=== PATIENT | male | born 1945 | race African-American/Black ===

== ENCOUNTER 2017-01-16 09:12 | Outpatient (CLI) | payer OTHER ==
[2017-01-16] MEDS ORDERED: XYLOCAINE 1 % (PLAIN) ONE (09:38)
[2017-01-16 09:57] LABS: BASOPHILS % (AUTO) 0.9 % (0.2-1.0); EOSINOPHILS # (AUTO) 0.1 x10^3/uL (0.0-0.2); EOSINOPHILS % (AUTO) 3.4 % (0.9-2.9); HEMATOCRIT 38.1 % (42.0-54.0); HEMOGLOBIN 12.7 g/dL (13.5-18.0); LYMPHOCYTES # (AUTO) 1.9 X10^3/uL (1.3-2.9); MEAN CORPUSCULAR HEMOGLOBIN 31.8 pg (27.0-34.0); MEAN CORPUSCULAR HGB CONC 33.3 g/dL (33.0-35.0); MEAN CORPUSCULAR VOLUME 95.6 fL (80.0-100.0); MEAN PLATELET VOLUME 9.2 fL (7.4-11.0); MONOCYTES # (AUTO) 0.3 x10^3/uL (0.3-0.8); NEUTROPHILS # (AUTO) 1.1 x10^3/uL (2.2-4.8); NEUTROPHILS % (AUTO) 31.7 % (42.0-75.0); PLATELET COUNT 87 X10^3/uL (150.0-450.0); RED BLOOD COUNT 3.98 X10^6/uL (4.7-6.0); RED CELL DISTRIBUTION WIDTH 15.7 % (11.6-16.5); WHITE BLOOD COUNT 3.4 X10^3/uL (3.6-10.0)
[2017-01-16 10:08] LABS: ALANINE AMINOTRANSFERASE 86 Units/L (12-78); ALBUMIN 3.7 g/dL (3.4-5.0); ALKALINE PHOSPHATASE 69 Units/L (46-116); ASPARTATE AMINO TRANSFERASE 134 Units/L (15-37); BLOOD UREA NITROGEN 21 mg/dL (7-18); CALCIUM 9.1 mg/dL (8.5-10.1); CARBON DIOXIDE 27.5 mmol/L (21-32); CHLORIDE 104 mmol/L (98-107); SODIUM 140 mmol/L (136-145); TOTAL PROTEIN 8.2 g/dL (6.4-8.2); eGFR BLACK RACES 60 (>60); eGFR NON BLACK RACES 49 (>60)
[2017-01-16] MEDS ORDERED: NS 500 ML IV 500 ML IV ONE (11:25)
[2017-01-16 12:58] VITALS: BMI 23.1
[2017-01-16 14:03] VITALS: BP 153/92
--- NOTE | 2017-01-16 15:02 | US ---
History: Hepatitis-C Study: Ultrasound of the liver Findings: The common hepatic duct measures 2.9 mm diameter. The gallbladder is not imaged. The right lobe of the liver measures at least 19.7 cm sagittal length. There is no focal liver mass. There is d iffuse increased echogenicity of liver parenchyma. The visualized pancreas is unremarkable. The right kidney measures 8.46 x 4.74 by is 7.09 cm without mass or hydronephrosis. There is no free fluid. Th ere is a appropriate flow in the portal vein. The gallbladder is apparently absent. Impression: Mild enlargement of the liver without focal mass. Diffuse increased echogenicity compatib le with a viral hepatitis. Reported By:
--- NOTE | 2017-01-16 15:33 | CT ---
HISTORY: Hepatitis-C Study: CT-guided liver biopsy Comparison: None Procedure: The risk, benefits, and alternatives were discussed. Informed consent was obtained. Time o ut was performed. CT guidance was utilized to localize the optimal percutaneous biopsy site along the inferior right lobe of the liver. The patient was prepped, draped, and anesthetized in the usual peterson rile fashion. A 20 gauge Bard coaxial system was advanced to the region of interest, and multiple cor e samples were obtained. The patient tolerated the procedure well without immediate postprocedure com plication and will be monitored for approximately 1 hour prior to discharge if hemodynamic status and pain tolerance are stable. IMPRESSION: Technically successful CT-guided random liver biopsy. Reported By:
== END 2017-01-16 14:15 | disposition home or self-care (01) ==
LOC: RAD 09:12
PROVIDERS: ATTEND Internal Medicine Gastroenterology
PROC: 0FB13ZX Excision of Right Lobe Liver, Percutaneous Approach, Diagnostic (ICD-10-PCS; principal; 2017-01-16)
DX: B18.2 Chronic viral hepatitis C (principal); R16.0 Hepatomegaly, not elsewhere classified
CPT/HCPCS: 36415; 76705; 77012; 80053; 85025; 85610; 85730; 88307; A4222; J2001

== ENCOUNTER 2020-09-07 14:14 | Observation (INO) ==
--- NOTE | 2020-09-07 14:29 | DR.GENAD ---
HPI Time Seen Time Seen by Provider: 09/07/20 14:21 HPI Comment HPI Comment: Patient presents to the ER from outpatient surgery. Patient was to have eye surgery but was noted by nursing to have HR in the 30s. patient denies any palpatations, dizziness, chest pain, shortness of breath. Patient notes that he feels his usual. COVID-19 Coronavirus risk:travel/contact w/high risk person: No Has patient experienced Coronavirus symptoms: No PMH PMH Past Surgical History: Yes Travel Risk Coronavirus risk:travel/contact w/high risk person: No Has patient experienced Coronavirus symptoms: No ROS Review of Systems Constitutional: See HPI Cardiovascular: See HPI All Other Systems: Reviewed and Negative PE Vital Signs Vitals: Temperature 97.3 F Pulse Rate 67 Respiratory Rate 20 Blood Pressure [Left Arm] 153/92 Blood Pressure 119/79 O2 Sat by Pulse Oximetry 97 General Limitations: No Limitations General Appearance: Alert and In No Apparent Distress Head Head Exam: Normal Inspection, Atraumatic and Normocephalic Eyes Eye exam: Normal Appearance and EOMI ENT ENT Exam: Normal Exam Neck Neck Exam: Normal Inspection and Trachea Midline Chest Chest Inspection: Normal Inspection and Symmetric Chest Wall Rise Respiratory Respiratory Exam: Normal Lung Sounds Bilat Respiratory Exam: Bilateral: Clear to Auscultation Cardiovascular Cardiovascular Exam: Normal Rhythm, Bradycardia and Other (HR 50s); negative Regular Rate, Tachycardia, Irregular Rhythm, Normal Heart Sounds, Systolic Murmur, Diastolic Murmur, Rubs, Gallop, Clicks, JVD, +S1, +S2, +S3 and +S4 Abdominal Exam Abdominal Exam: Normal Inspection, Normal Bowel Sounds and Soft Extremities Extremities Exam: Normal Inspection Back Back Exam: Normal Inspection Neurologic Neurological Exam: Alert and Oriented X3 Psychiatric Psychiatric Exam: Normal Affect and Normal Mood Skin Skin Exam: Warm, Dry and Intact COURSE Reevaluation 1st: Unchanged Consultation Called: 17:17 Consultation Comments: Spoke with Dr. Rios who accepts patient for admission. Will consult Cardiology for bradycardia ROR Labs Reviewed Laboratory Results Reviewed?: Yes Result Diagrams: 09/07/20 14:45 09/07/20 14:45 Laboratory: WBC 4.2 X10^3/uL (3.6-10.0) 09/07/20 14:45 RBC 4.20 X10^6/uL (4.7-6.0) L 09/07/20 14:45 Hgb 12.5 g/dL (13.5-18.0) L 09/07/20 14:45 Hct 38.2 % (42.0-54.0) L 09/07/20 14:45 MCV 91.0 fL (80.0-100.0) 09/07/20 14:45 MCH 29.9 pg (27.0-34.0) 09/07/20 14:45 MCHC 32.9 g/dL (33.0-35.0) L 09/07/20 14:45 RDW 15.2 % (11.6-16.5) 09/07/20 14:45 Plt Count 122 X10^3/uL (150.0-450.0) L 09/07/20 14:45 MPV 9.7 fL (7.4-11.0) 09/07/20 14:45 Neut % (Auto) 40.1 % (42.0-75.0) L 09/07/20 14:45 Lymph % (Auto) 42.1 % (21.0-51.0) 09/07/20 14:45 [place] % (Auto) 10.7 % (0.0-13.0) 09/07/20 14:45 Eos % (Auto) 5.7 % (0.9-2.9) H 09/07/20 14:45 Baso % (Auto) 1.4 % (0.2-1.0) H 09/07/20 14:45 Neut # (Auto) 1.7 x10^3/uL (2.2-4.8) L 09/07/20 14:45 Lymph # (Auto) 1.8 X10^3/uL (1.3-2.9) 09/07/20 14:45 [place] # (Auto) 0.4 x10^3/uL (0.3-0.8) 09/07/20 14:45 Eos # (Auto) 0.2 x10^3/uL (0.0-0.2) 09/07/20 14:45 Baso # (Auto) 0.1 X10^3/uL (0.0-0.1) 09/07/20 14:45 Absolute Nucleated RBC 0.3 /100WBC 09/07/20 14:45 PT 15.0 SECONDS (11.8-14.3) 09/07/20 14:40 INR Target Range - 09/07/20 14:40 INR 1.24 (0.8-1.3) 09/07/20 14:40 APTT 39.5 SECONDS (22.9-36.5) H 09/07/20 14:40 PTT Comment - 09/07/20 14:40 Sodium 141 mmol/L (136-145) 09/07/20 14:45 Corrected Sodium TNP 09/07/20 14:45 Potassium 4.7 mmol/L (3.5-5.1) 09/07/20 14:45 Chloride 105 mmol/L (98-107) 09/07/20 14:45 Carbon Dioxide 24.0 mmol/L (21-32) 09/07/20 14:45 BUN 17 mg/dL (7-18) 09/07/20 14:45 Creatinine 1.13 mg/dL (0.70-1.30) 09/07/20 14:45 Est GFR (MDRD) Af Amer > 60 (>60) 09/07/20 14:45 Est GFR (MDRD) Non-Af > 60 (>60) 09/07/20 14:45 Glucose 89 mg/dL (65-99) 09/07/20 14:45 Calcium 9.1 mg/dL (8.5-10.1) 09/07/20 14:45 Corrected Calcium TNP 09/07/20 14:45 Magnesium 2.0 mg/dL (1.7-2.9) 09/07/20 14:45 Total Bilirubin 0.60 mg/dL (0.2-1.0) 09/07/20 14:45 AST 23 Units/L (15-37) 09/07/20 14:45 ALT 13 Units/L (12-78) 09/07/20 14:45 Alkaline Phosphatase 63 Units/L (46-116) 09/07/20 14:45 Creatine Kinase 133 Units/L (39-308) 09/07/20 14:45 CK-MB (CK-2) 2.1 ng/mL (0-4.0) 09/07/20 14:45 CK/CKMB % Calc 1.6 % (<4) 09/07/20 14:45 Troponin I < 0.02 ng/mL (0-1.5) 09/07/20 14:45 Total Protein 8.4 g/dL (6.4-8.2) H 09/07/20 14:45 Albumin 4.1 g/dL (3.4-5.0) 09/07/20 14:45 Globulin 4.3 g/dL (2.5-4.5) 09/07/20 14:45 Albumin/Globulin Ratio 1.0 Ratio (1.1-2.1) L 09/07/20 14:45 TSH 3rd Generation 3.402 uIU/mL (0.358-3.74) 09/07/20 14:45 Opioid Opioid Risk Tool Age (Javier box if 16-45): No History of Preadolescent Sexual Abuse: No Total: 0 Total Score Risk Category: Low Risk Copyright: Emil HUANG predicting aberrant behaviors Diagnosis Discharge Problem: Bradycardia
[2020-09-07 14:34] VITALS: BMI 22.1
[2020-09-07] MEDS ORDERED: NS 1000 ML 1,000 ML ONE (14:57)
[2020-09-07 14:59] LABS: BASOPHILS # (AUTO) 0.1 X10^3/uL (0.0-0.1); BASOPHILS % (AUTO) 1.4 % (0.2-1.0); EOSINOPHILS # (AUTO) 0.2 x10^3/uL (0.0-0.2); EOSINOPHILS % (AUTO) 5.7 % (0.9-2.9); HEMATOCRIT 38.2 % (42.0-54.0); HEMOGLOBIN 12.5 g/dL (13.5-18.0); LYMPHOCYTES # (AUTO) 1.8 X10^3/uL (1.3-2.9); LYMPHOCYTES % (AUTO) 42.1 % (21.0-51.0); MEAN CORPUSCULAR HEMOGLOBIN 29.9 pg (27.0-34.0); MEAN CORPUSCULAR HGB CONC 32.9 g/dL (33.0-35.0); MEAN PLATELET VOLUME 9.7 fL (7.4-11.0); MONOCYTES # (AUTO) 0.4 x10^3/uL (0.3-0.8); MONOCYTES % (AUTO) 10.7 % (0.0-13.0); NEUTROPHILS # (AUTO) 1.7 x10^3/uL (2.2-4.8); NEUTROPHILS % (AUTO) 40.1 % (42.0-75.0); PLATELET COUNT 122 X10^3/uL (150.0-450.0); RED CELL DISTRIBUTION WIDTH 15.2 % (11.6-16.5); WHITE BLOOD COUNT 4.2 X10^3/uL (3.6-10.0)
[2020-09-07] MEDS ORDERED: NS 1000 ML 1,000 ML IV SCH (15:00)
[2020-09-07 15:15] LABS: ALANINE AMINOTRANSFERASE 13 Units/L (12-78); ALBUMIN 4.1 g/dL (3.4-5.0); ALKALINE PHOSPHATASE 63 Units/L (46-116); ASPARTATE AMINO TRANSFERASE 23 Units/L (15-37); BLOOD UREA NITROGEN 17 mg/dL (7-18); CALCIUM 9.1 mg/dL (8.5-10.1); CHLORIDE 105 mmol/L (98-107); CKMB % 1.6 % (<4); CREATINE KINASE 133 Units/L (39-308); CREATINE KINASE MB 2.1 ng/mL (0-4.0); CREATININE 1.13 mg/dL (0.70-1.30); SODIUM 141 mmol/L (136-145); TOTAL PROTEIN 8.4 g/dL (6.4-8.2); TROPONIN I < 0.02 ng/mL (0-1.5); TSH (3RD GENERATION) 3.402 uIU/mL (0.358-3.74); eGFR NON BLACK RACES > 60 (>60)
--- NOTE | 2020-09-07 15:47 | RAD ---
HISTORYPt brought over by [employer] for decreased heart rate. Palpated pulse is 35 on arrival but monitor reads 76. Pt denies known history of bradycardia.STUDYCHEST x-ray, 1 VIEWCOMPARISONX-ray 03/14/2019FINDINGSCalcified granuloma in the mid right lung. Probable calcified granuloma in the right lung apex. These appear similar to prior study. Likely mild cardiomegaly without pulmonary venous congestion. No evidence of pneumothorax, focal infiltrate, or pleural effusion is seen.IMPRESSIONLikely mild cardiomegaly without pulmonary venous congestion. Appearance is similar to prior study.Electronically signed by: Godwin Diaz (Sep 07, 2020 15:45:20)
[2020-09-07 18:09] LABS: CKMB % 1.9 % (<4); CREATINE KINASE 92 Units/L (39-308); CREATINE KINASE MB 1.7 ng/mL (0-4.0); TROPONIN I < 0.02 ng/mL (0-1.5)
[2020-09-07] MEDS: NS 1000 ML 1,000 ML IV SCH (18:21)
[2020-09-07 23:55] LABS: CREATINE KINASE 71 Units/L (39-308); CREATINE KINASE MB 1.4 ng/mL (0-4.0); TROPONIN I < 0.02 ng/mL (0-1.5)
[2020-09-08] MEDS: NS 1000 ML 1,000 ML IV SCH ×2 (03:32→07:14)
[2020-09-08 05:38] LABS: BASOPHILS % (AUTO) 0.3 % (0.2-1.0); EOSINOPHILS # (AUTO) 0.2 x10^3/uL (0.0-0.2); EOSINOPHILS % (AUTO) 6.8 % (0.9-2.9); HEMOGLOBIN 11.1 g/dL (13.5-18.0); LYMPHOCYTES # (AUTO) 1.6 X10^3/uL (1.3-2.9); LYMPHOCYTES % (AUTO) 46.6 % (21.0-51.0); MEAN CORPUSCULAR HEMOGLOBIN 29.8 pg (27.0-34.0); MEAN CORPUSCULAR HGB CONC 33.6 g/dL (33.0-35.0); MEAN CORPUSCULAR VOLUME 88.6 fL (80.0-100.0); MEAN PLATELET VOLUME 9.8 fL (7.4-11.0); MONOCYTES # (AUTO) 0.5 x10^3/uL (0.3-0.8); MONOCYTES % (AUTO) 15.4 % (0.0-13.0); NEUTROPHILS % (AUTO) 30.9 % (42.0-75.0); PLATELET COUNT 117 X10^3/uL (150.0-450.0); RED BLOOD COUNT 3.72 X10^6/uL (4.7-6.0); RED CELL DISTRIBUTION WIDTH 14.8 % (11.6-16.5); WHITE BLOOD COUNT 3.3 X10^3/uL (3.6-10.0)
[2020-09-08 05:48] LABS: ALANINE AMINOTRANSFERASE 11 Units/L (12-78); ALKALINE PHOSPHATASE 51 Units/L (46-116); ASPARTATE AMINO TRANSFERASE 11 Units/L (15-37); BLOOD UREA NITROGEN 17 mg/dL (7-18); CALCIUM 8.3 mg/dL (8.5-10.1); CARBON DIOXIDE 23.9 mmol/L (21-32); CHLORIDE 109 mmol/L (98-107); CKMB % 1.9 % (<4); COR CA(FOR HYPOALB) 9.1 mg/dL (8.5-10.1); COR NA(FOR HYPERGLY) 144 mmol/L (136-145); CREATINE KINASE 62 Units/L (39-308); CREATINE KINASE MB 1.2 ng/mL (0-4.0); CREATININE 1.21 mg/dL (0.70-1.30); SODIUM 143 mmol/L (136-145); TOTAL PROTEIN 6.4 g/dL (6.4-8.2); TROPONIN I < 0.02 ng/mL (0-1.5); eGFR NON BLACK RACES > 60 (>60)
[2020-09-08] MEDS ORDERED: LASIX PO SCH (09:00)
[2020-09-08] MEDS ORDERED: PEPCID TAB 20 MG PO SCH (09:00)
[2020-09-08] MEDS ORDERED: ZESTRIL TAB 10 MG PO SCH (09:00)
[2020-09-08] MEDS ORDERED: FLOMAX PO SCH (09:00)
[2020-09-08] MEDS ORDERED: OFLOXACIN 0.3% OP SCH (09:00)
[2020-09-08] MEDS ORDERED: LIPITOR TAB 20 MG PO SCH (09:00)
[2020-09-08] MEDS: ACULAR 0.5% OPHTH 1 DOSE OP SCH ×2 (09:06→09:48)
[2020-09-08] MEDS: PRED FORTE 1 % OP SCH ×2 (09:07→09:48)
[2020-09-08] MEDS: XALATAN OP SCH ×2 (09:07→09:49)
--- NOTE | 2020-09-08 10:41 | DR.SSS ---
SHORT STAY SUMMARY Admission Date Date of Admission: 09/07/20 Discharge Date Discharge Date: 09/08/20 Admission Diagnoses Admission Diagnoses: Bradycardia Coronary artery disease Hypertension Discharge Diagnoses Discharge Diagnoses: Asymptomatic bradycardia Anemia CAD HTN Chief Complaint Chief Complaint: low heart rate on telemetry History of Present Illness History of Present Illness: Mr Harper is a 74y/o male with a PMH of throat cancer, HTN, CAD s/p PCI (11 stents) was scheduled to have outpatient eye procedure and was noted to have bradycardia. His HR was in the 30s. Patient did not have any Sx. His eye procedure was cancelled and patient was brought to the ER for further evaluation. Patient's HR remained between 50-60. Labs did not show any pertinent abnormalities. EKG showed bradycardia with no obvious blocks, cardiac enzymes were negative. CXR showed cardiomegaly, no acute process. Patient denied Sx. He was admitted for obs and cardiology was consulted for the morning. Past Medical History Past Medical History: Coronary Artery Disease, Dyslipidemia and Hypertension Additional Medical History: Throat cancer Past Surgical History Surgical History: Other Allergies Allergies Allergy/AdvReac Type Severity Reaction Status Date / Time No Known Drug Allergies Allergy Verified 08/24/20 10:15 Medications Home Medications: No Known Drug Allergies Allergy (Verified 08/24/20 10:15) CONTINUE taking the following medications atorvastatin 20 mg PO DAILY 09/08/20 [History] famotidine 20 mg PO DAILY 09/08/20 [History] furosemide 20 mg PO DAILY 09/08/20 [History] hydrocodone-acetaminophen 1 tab PO Q8H PRN 09/08/20 [History] ketorolac 1 drp OPHTHALMIC (EYE) QID 09/08/20 [History] latanoprost 1 drp OPHTHALMIC (EYE) DAILY 09/08/20 [History] lisinopril 30 mg PO DAILY 09/08/20 [History] ofloxacin 1 drp OPHTHALMIC (EYE) QID 09/08/20 [History] oxybutynin chloride 10 mg PO HS 09/08/20 [History] prednisolone acetate 2 drp OPHTHALMIC (EYE) QID 09/08/20 [History] tamsulosin 0.4 mg PO DAILY 09/08/20 [History] New Prescriptions carvedilol 3.125 mg PO DAILY 30 Days #30 tab 09/08/20 [Rx] Family History Family Medical History: Hypertension Social History Does patient currently use any type of tobacco product: Yes Have you used tobacco products in the last 12 months: Yes Type of Tobacco Use: Cigarettes Does any household member use tobacco: No Alcohol Use: None Drug Use: Prescription Drugs Review of Systems Constitutional: No Symptoms Reported Eyes: No Symptoms Reported ENT: No Symptoms Reported Respiratory: No Symptoms Reported Cardiovascular: No Symptoms Reported Gastrointestinal: No Symptoms Reported Genitourinary: No Symptoms Reported Musculoskeletal: No Symptoms Reported Skin: No Symptoms Reported Neurological: No Symptoms Reported Physical Exam Vital Signs: Last Vital Signs Temp 98.6 F 09/08/20 07:18 Pulse 66 09/08/20 10:30 Resp 25 H 09/08/20 10:30 BP 179/88 09/08/20 10:01 Pulse Ox 97 09/08/20 10:30 Oriented: Normal Eyes: Normal Ear: Normal Nose: Normal Respiratory: Clear Throughout Cardiovascular: Normal Auscultation: Bowel Sounds: Normal Palpation: Normal Tenderness: Normal Skin: Normal Musculoskeletal: Normal Psychiatric: Normal Mood Description: Calm Affect: Normal Speech Pattern: Clear and Trach(not ventilated) (using speaking valve ) Labs Labs: Laboratory Last Values WBC 3.3 X10^3/uL (3.6-10.0) L 09/08/20 04:35 RBC 3.72 X10^6/uL (4.7-6.0) L 09/08/20 04:35 Hgb 11.1 g/dL (13.5-18.0) L 09/08/20 04:35 Hct 33.0 % (42.0-54.0) L 09/08/20 04:35 MCV 88.6 fL (80.0-100.0) 09/08/20 04:35 MCH 29.8 pg (27.0-34.0) 09/08/20 04:35 MCHC 33.6 g/dL (33.0-35.0) 09/08/20 04:35 RDW 14.8 % (11.6-16.5) 09/08/20 04:35 Plt Count 117 X10^3/uL (150.0-450.0) L 09/08/20 04:35 MPV 9.8 fL (7.4-11.0) 09/08/20 04:35 Neut % (Auto) 30.9 % (42.0-75.0) L 09/08/20 04:35 Lymph % (Auto) 46.6 % (21.0-51.0) 09/08/20 04:35 [place] % (Auto) 15.4 % (0.0-13.0) H 09/08/20 04:35 Eos % (Auto) 6.8 % (0.9-2.9) H 09/08/20 04:35 Baso % (Auto) 0.3 % (0.2-1.0) 09/08/20 04:35 Neut # (Auto) 1.0 x10^3/uL (2.2-4.8) L 09/08/20 04:35 Lymph # (Auto) 1.6 X10^3/uL (1.3-2.9) 09/08/20 04:35 [place] # (Auto) 0.5 x10^3/uL (0.3-0.8) 09/08/20 04:35 Eos # (Auto) 0.2 x10^3/uL (0.0-0.2) 09/08/20 04:35 Baso # (Auto) 0.0 X10^3/uL (0.0-0.1) 09/08/20 04:35 Absolute Nucleated RBC 0.3 /100WBC 09/08/20 04:35 PT 15.0 SECONDS (11.8-14.3) 09/07/20 14:40 INR Target Range - 09/07/20 14:40 INR 1.24 (0.8-1.3) 09/07/20 14:40 APTT 39.5 SECONDS (22.9-36.5) H 09/07/20 14:40 PTT Comment - 09/07/20 14:40 Sodium 143 mmol/L (136-145) 09/08/20 04:35 Corrected Sodium 144 mmol/L (136-145) 09/08/20 04:35 Potassium 3.7 mmol/L (3.5-5.1) 09/08/20 04:35 Chloride 109 mmol/L (98-107) H 09/08/20 04:35 Carbon Dioxide 23.9 mmol/L (21-32) 09/08/20 04:35 BUN 17 mg/dL (7-18) 09/08/20 04:35 Creatinine 1.21 mg/dL (0.70-1.30) 09/08/20 04:35 Est GFR (MDRD) Af Amer > 60 (>60) 09/08/20 04:35 Est GFR (MDRD) Non-Af > 60 (>60) 09/08/20 04:35 Glucose 142 mg/dL (65-99) H 09/08/20 04:35 Calcium 8.3 mg/dL (8.5-10.1) L 09/08/20 04:35 Corrected Calcium 9.1 mg/dL (8.5-10.1) 09/08/20 04:35 Magnesium 2.0 mg/dL (1.7-2.9) 09/07/20 14:45 Total Bilirubin 0.30 mg/dL (0.2-1.0) 09/08/20 04:35 AST 11 Units/L (15-37) L 09/08/20 04:35 ALT 11 Units/L (12-78) L 09/08/20 04:35 Alkaline Phosphatase 51 Units/L (46-116) 09/08/20 04:35 Creatine Kinase 62 Units/L (39-308) 09/08/20 04:35 CK-MB (CK-2) 1.2 ng/mL (0-4.0) 09/08/20 04:35 CK/CKMB % Calc 1.9 % (<4) 09/08/20 04:35 Troponin I < 0.02 ng/mL (0-1.5) 09/08/20 04:35 Total Protein 6.4 g/dL (6.4-8.2) 09/08/20 04:35 Albumin 3.0 g/dL (3.4-5.0) L 09/08/20 04:35 Globulin 3.4 g/dL (2.5-4.5) 09/08/20 04:35 Albumin/Globulin Ratio 0.9 Ratio (1.1-2.1) L 09/08/20 04:35 TSH 3rd Generation 3.402 uIU/mL (0.358-3.74) 09/07/20 14:45 Assessment/Plan (1) Bradycardia: (2) CAD (coronary artery disease): (3) HTN (hypertension): (4) History of throat cancer: Hospital Course Hospital Course: Patient was admitted as observation for asymptomatic bradycardia. Overnight, patient's HR remained between 50-60. He denies symptoms. Patient's cardiac enzymes were negative. His home medications were resumed except coreg. Dr. Ventura was consulted and recommended to hold off coreg today and start a lower dose tomorrow. Patient will follow up with PCP and cardiol ogist outpatient. He was stable for discharge. Discharge Medications Discharge Medications: Home Medication List atorvastatin 20 mg PO DAILY 09/08/20 [History] carvedilol 3.125 mg PO DAILY 30 Days #30 tab 09/08/20 [Rx] famotidine 20 mg PO DAILY 09/08/20 [History] furosemide 20 mg PO DAILY 09/08/20 [History] hydrocodone-acetaminophen 1 tab PO Q8H PRN 09/08/20 [History] ketorolac 1 drp OPHTHALMIC (EYE) QID 09/08/20 [History] latanoprost 1 drp OPHTHALMIC (EYE) DAILY 09/08/20 [History] lisinopril 30 mg PO DAILY 09/08/20 [History] ofloxacin 1 drp OPHTHALMIC (EYE) QID 09/08/20 [History] oxybutynin chloride 10 mg PO HS 09/08/20 [History] prednisolone acetate 2 drp OPHTHALMIC (EYE) QID 09/08/20 [History] tamsulosin 0.4 mg PO DAILY 09/08/20 [History] Prescriptions: carvedilol Eva Rios Discharge Disposition Discharge Disposition: Home
[2020-09-08] MEDS ORDERED: LOVENOX INJ 40 MG SYR SC SCH (11:00)
[2020-09-08 12:12] VITALS: BP 163/93
== END 2020-09-08 13:15 | disposition home or self-care (01) ==
LOC: ICU 14:14 → ER 14:14 → ICU 18:04
PROVIDERS: ADMIT Internal Medicine; ATTEND Internal Medicine
DX: I25.10 Atherosclerotic heart disease of native coronary artery without angina pectoris; R73.09 Other abnormal glucose; D64.89 Other specified anemias; Z85.819 Personal history of malignant neoplasm of unspecified site of lip, oral cavity, and pharynx; I10 Essential (primary) hypertension; R79.1 Abnormal coagulation profile; R94.31 Abnormal electrocardiogram [ECG] [EKG]; R00.1 Bradycardia, unspecified